=== PATIENT | male | born 1955 | race Caucasian/White ===

== ENCOUNTER 2016-12-16 08:51 | Inpatient (IN) | payer BC, OTHER ==
[~2016-12-16] VITALS: Ht 175.3 cm; Wt 106.6 kg
--- NOTE | ~2016-12-16 | S ---
[facility] [place] [address] SURGICAL PATH RPT PROCEDURE Name: KIRTI SCHERER Room #: 439-P DIS IN M.R.#: [id number] Admission: 12/16/16 Date of : 55 Discharge: 12/18/16 Report #: [id number] Path Case #: [id number] PATHOLOGY REPORT COLLECTION DATE: 12/16/2016 RECEIVED DATE: 12/17/2016 SUBMITTING PHYS: Dr. Patel Cardenas OTHER PHYS: Dr. Wojciech Raymond SPECIMEN(S) RECEIVED: A.Gallbladder * * * * * * * * * * * * FINAL DIAGNOSIS: Gallbladder, cholecystectomy: - Acute necrotizing cholecystitis. - Liver with reactive changes. (CLW:; d/t: 12/21/16) PATHOLOGIST: Shanita Oviedo M.D. REPORT ELECTRONICALLY SIGNED BY: Shanita Oviedo M.D. DATE/TIME: 12/21/2016 23:48 * * * * * * * * * * * * GROSS PATHOLOGY: Received in formalin labeled "Kirti Scherer gallbladder," is a 9.5 x 4.0 x 2.1 cm, previously opened gallbladder with a wrinkled, shiny, pale graydark green serosal surfaces. The gallbladder is opened to show a dark greenbrown, velvety, bile-stained mucosa and an average wall thickness of 0.3 cm. Calculi are not present and no masses are noted grossly. Reel System Operator sections from the body and fundus are submitted along with the proximal margin in cassette A1. (SNA; 12/18/2016) CLINICAL HISTORY: Cholecystitis INITIAL CPT CODE(S): A; 78274 Professional services performed by [facility] at [facility] [address], [place] [address] Technical services performed by [facility] at [address] [place] [address]. [facility] [address] [place] [address] SURGICAL PATH RPT PROCEDURE Name: KIRTI SCHERER Room #: 439-P [facility] IN ..#: [id number] Admission: 12/16/16 Date of : 55 Discharge: 12/18/16 Report #: [id number] Path Case #: [id number] kalpana wallace [facility] [address] [address] PHONE: [phone] DIRECTOR: Christopher Patton M.D. * * * END OF REPORT * * *
--- NOTE | ~2016-12-16 | O ---
[facility] [place] [address] OPERATIVE REPORT Name: KIRTI SCHERER Room #: 439-[facility] IN M.R.#: [id number] Admission: 12/16/16 Attend Phys: Wojciech Raymond Discharge: 12/18/16 Date of : 55 Report #: [id number] THIS REPORT FOR: //name// CC: MAGAN JAYY Raymond DATE OF SERVICE: 12/16/2016 PREOPERATIVE DIAGNOSES: 1. Cholecystitis. 2. Cholelithiasis. 3. Hyperbilirubinemia. POSTOPERATIVE DIAGNOSES: 1. Cholecystitis. 2. Cholelithiasis. 3. Hyperbilirubinemia. SURGEON: Patel Cardenas MD. VECTOR CONTROL ASSISTANT: Collin Ross MD. OPERATION PERFORMED: Laparoscopic cholecystectomy. ANESTHESIA: General endotracheal anesthesia and local anesthetic. ESTIMATED BLOOD LOSS: 250 mL. SPECIMENS TO PATHOLOGY: Gallbladder and contents. FINDINGS: Intraoperative cholangiogram showed no obvious filling defects, but showed a possible narrowing of the distal common bile duct, significant inflammatory response of the gallbladder which was thickened and indurated, this did appear chronic cholelithiasis also noted. INDICATION FOR PROCEDURE: The patient is a very pleasant 61-year-old gentleman who was admitted to [facility] on 12/16/2016 with abdominal pain that reportedly begun 2 days prior and he had been evaluated at [facility]. Apparently at that location, a CT scan of the abdomen was unremarkable and he was discharged home. He developed worsened chills, nausea and abdominal pain and therefore sought evaluation at [facility]. He also developed a sensation of feeling faint and he was evaluated for bradycardia. No obvious cardiac issue was identified. Ultrasound of the abdomen was obtained and this showed gallbladder wall significantly thickened at 6 mm with pericholecystic fluid and circumferential wall thickening. The liver also showed steatotic appearance. No obvious ductal dilatation. No obvious [facility] [address] [place] [address] OPERATIVE REPORT Name: KIRTI SCHERER Room #: 439-P [facility] IN M.R.#: [id number] Admission: 12/16/16 Attend Phys: Wojciech Raymond Discharge: 12/18/16 Date of : 55 Report #: [id number] choledocholithiasis was identified. Common bile duct was measured at 4.1. General Surgery was consulted for potential surgical intervention. Detailed discussion of the risks and benefits of cholecystectomy was held with the patient including bleeding, pain, infection, need for conversion to open cholecystectomy, damage to surrounding structures such as small bowel, duodenum, stomach, pylorus, liver, common bile duct, colon, significant perioperative hemorrhage and possible need for further intervention were all discussed. It was also discussed that potential unforeseen events may require further intervention for therapy, which may not have been specifically mentioned. All questions were answered to the patient's satisfaction and written informed consent was obtained. DESCRIPTION OF PROCEDURE: The patient was brought to the operating room and placed in a supine position. Timeout was taken to verify the patient's identity and to plan the procedure. SCDs were in place in the lower extremities bilaterally. Preoperative antibiotics were administered. Anesthesia was induced. The patient was intubated. Abdomen was sterilely prepped and draped in standard fashion. A 5 mm right upper quadrant incision was made after local anesthetic had been infiltrated. Direct optical access was utilized with a 5 mm 0 degree laparoscope. Pneumoperitoneum was created. Inspection of the viscera showed that no obvious injury had occurred. Periumbilical local anesthetic was infiltrated and 12 mm port was placed at the level of the umbilicus under direct vision. A 5 mm subxiphoid port was placed and a right lateral 5 mm port was placed in similar fashion. The patient was placed in the reverse Trendelenburg, right side up position. Orogastric tube was placed to decompress the stomach. The right upper quadrant structures were noted to be significantly inflamed and the duodenum and colon were adherent as well as omentum up to the gallbladder. This was meticulously dissected to reveal the gallbladder itself, which was indurated and full with signs of chronic inflammation. Careful dissection down to the infundibulum was then performed using [place] dissector and Sonicision energy device. Infundibulum was then isolated and critical view of safety was obtained once the cystic artery had been well identified. Cystic artery was clipped x 2 and transected to ligate this. The cystic duct was then isolated and milked back toward the gallbladder. The cystic duct was clipped near the gallbladder and incision was made in the cystic duct using laparoscopic scissor. Cholangiocatheter was then inserted into this opening and this was clipped in place. Cholangiogram was then performed and this showed good flow of contrast into the duodenum. There were no obvious filling defects, good flow back into the common hepatic duct and right and left hepatic ducts; however, at the distal common bile duct near the junction of the pancreatic duct, there was a narrowed appearance. Various angles were taken of this region to obtain good imagery. Again, no filling defects were identified. At this point, the cholangiogram was finished. The cholangiocatheter was removed. The cystic duct was clipped x 3 on the downside. Cystic duct was then transected using Sonicision energy device. The gallbladder was then resected from the fossa using Sonicision and electrocautery. The gallbladder fossa tended to ooze significantly with [facility] [address] [place] [address] OPERATIVE REPORT Name: KIRTI SCHERER Room #: 439-P [facility] IN ..#: [id number] Admission: 12/16/16 Attend Phys: Wojciech Raymond Discharge: 12/18/16 Date of : 55 Report #: [id number] difficult control of bleeding. A high setting electrocautery was utilized as well as placement of Surgicel and FloSeal within this region. The gallbladder was ultimately extracted successfully and placed into an EndoCatch bag. This was removed from the umbilical port site, which had to be enlarged slightly in order to accommodate the large size of the gallbladder. This was opened on the backtable and showed thickened eason as expected as well as chronic inflammation and cholelithiasis. Attention was returned to the infrahepatic space and this was irrigated with copious warm sterile saline and suctioned clear. Further electrocautery was utilized for hemostatic control and FloSeal and Surgicel were ultimately successful at maintaining hemostatic control. The 12 mm port site was then removed and using direct vision, the fascia was closed at this level using [id number] 0 PDS suture on a suture passer device. Reinspection of the gallbladder fossa showed that hemostasis was well maintained and at this point, pneumoperitoneum was removed. The 5 mm ports were discontinued. Further local anesthetic was infiltrated into each of the 4 port sites. 4-0 Monocryl subcuticular stitch was used to close the skin in each of the 4 sites. Dermabond was applied superficially at each of the 4 sites. At this point, the case was ended, all instrumentation had been extracted and accounted for. All counts were correct per nursing report. The patient was then awakened, extubated, and taken to the postoperative care unit in stable condition. By: [id number] Patel Cardenas MD /nt
--- NOTE | ~2016-12-16 | EKG ---
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 : 1955 Requested By: Ghada Stovall Order Number: [id number] MD: Jose Miguel Hudson Measurements Intervals [place] Rate: 81 P: 34 CA: 188 QRS: -46 QRSD: 92 T: -24 QT: 461 QTc: 536 Interpretive Statements Sinus rhythm Abnormal R-wave progression, late transition Left ventricular hypertrophy Inferior infarct, age indeterminate Prolonged QT interval No previous ECG available for comparison Electronically Signed On 12-17-2016 8:09:02 CDT by Jose Miguel Hudson [email or web address] <ELECTRONICALLY SIGNED> By: Jose Miguel Hudson MD, [facility] 06/02/25 809 6 Jose Miguel Hudson MD, [facility] /EPI
--- NOTE | ~2016-12-16 | HC ---
[facility] [place] [address] [place] [address] CONSULTATION Name: KIRTI SCHERER Room #: 439-P ADM IN M.R.#: [id number] Admission: 12/16/16 Attend Phys: Wojciech Raymond Discharge: Date of : 55 Report #: [id number] THIS REPORT FOR: //name// CC: MAGAN Raymond DATE OF SERVICE: 12/16/2016 CHIEF COMPLAINT: Abdominal pain. 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 He was evaluated at [facility]. CT scan was apparently checked at that location and this did not show anything remarkable. The patient was discharged home and overnight he developed chills and nausea. No shortness of breath or solitario emesis was reported. No melena or hematochezia. Today, the patient was noted to feel faint and therefore, he was brought in for evaluation. He was evaluated for bradycardia which was noted upon evaluation in the Emergency Department. He was noted at that time to have a normal sinus rhythm with a rate of 81. Nonspecific ST changes were noted. The patient was noted to have a white blood cell count of 6.7, hemoglobin 16.5 and platelets of 120, segmental neutrophils of 76. Sodium 140, potassium 4.2, chloride of 108, BUN of 18, creatinine of 1.1, lactate of 2.0, total bilirubin was elevated at 2.3, AST of 56, ALT of 52, alkaline phosphatase of 114 and lipase of 93. Ultrasound of the abdomen in the Emergency Department at [place] showed dependent sludge and/or small gallstones with findings suggestive of acute cholecystitis. The gallbladder wall was significantly thickened at 6 mm with pericholecystic fluid and circumferential wall thickening. Liver showed diffused increased echogenicity consistent with steatosis. No mass or ductal dilatation. Common bile duct was measured at 4.1. Abdominal plain films were unremarkable. ALLERGIES: The patient has no known drug allergies. REVIEW OF SYSTEMS: CONSTITUTIONAL: Negative for fevers or unwanted weight loss. Positive for subjective chills. OCULAR: No diplopia or visual change. HEENT: No dysphagia or odynophagia. PULMONARY: No productive cough, no shortness of breath. CARDIOVASCULAR: Positive for lightheadedness and bradycardia, negative for chest pain. GASTROINTESTINAL: Positive for upper abdominal pain. Positive for nausea, but no emesis, no diarrhea, constipation or melena. GENITOURINARY: Negative for dysuria or hematuria. MUSCULOSKELETAL: No back pain or joint swelling. [address] [address] CONSULTATION Name: KIRTI SCHEERR Room #: 439-P [facility] IN M.R.#: [id number] Admission: 12/16/16 Attend Phys: Wojciech Raymond Discharge: Date of : 55 Report #: [id number] CUTANEOUS: Negative for skin lesions or rashes. NEUROLOGIC: No focal weakness or headache. HOME MEDICATIONS: Include omeprazole, carvedilol, losartan and rosuvastatin. PHYSICAL EXAMINATION: VITAL SIGNS: The patient is afebrile and normotensive, pulse in the 80s-90s. GENERAL: He is awake, alert and oriented, in no acute distress, he gives appropriate history. HEENT: Head is atraumatic and normocephalic. Pupils are equally round and reactive. No icterus is appreciated. Cranial nerves are intact and symmetric. Oral cavity is clear. NECK: Supple, no jugular venous distention. LUNGS: Clear to auscultation. HEART: Regular, without murmur. ABDOMEN: Soft and mildly tender in the upper abdomen, especially in the epigastrium and right upper quadrant. He is nondistended, no abdominal surgical scars. No obvious hernia. EXTREMITIES: Without clubbing, cyanosis or edema. The patient moves all extremities. Distal pulses are intact. SKIN: Well-perfused. IMPRESSION: A 61-year-old male patient with clinical history and ultrasound findings consistent with acute cholecystitis. Biliary sludge and/or gallstones are suggested. He also has hyperbilirubinemia of unclear etiology. This may be associated with choledocholithiasis versus compression of the common bile duct extrinsically. RECOMMENDATIONS: 1. Agree with admission to the hospitalist medicine for observation. 2. Discussed case with gastroenterology colleagues and will plan for laparoscopic cholecystectomy with intraoperative cholangiogram today. Based upon these findings, we will decide whether the patient needs further workup such as MRCP, ERCP or specialized CT scan. Consultation very much appreciated. We will continue to follow closely and make further recommendations based upon clinical status. <ELECTRONICALLY SIGNED> By: Patel Cardenas MD 12/17/16 1006 [id number] Patel Cardenas MD /nt
[2016-12-16 08:52] VITALS: BP 157/97
[2016-12-16 09:49] LABS: ABSOLUTE NEUTROPHILS 5.1 thou/uL (1.4-8.2); BASOPHILS 0.8 % (0.0-2.0); EOSINOPHILS 1.4 % (0.0-3.0); HEMATOCRIT 48.1 % (42.0-52.0); HEMOGLOBIN 16.5 gm/dL (14.0-18.0); MCH 30.4 pg (26.0-34.0); MCHC 34.2 g/dL (28.0-37.0); MCV 88.6 fL (80.0-100.0); MONOCYTES 7.2 % (1.0-8.0); PLATELET COUNT 120 thou/uL (150-400); POLYS 76.6 % (36.0-66.0); RBC 5.42 mil/uL (4.50-6.00); RDW 13.2 % (10.5-14.5); WBC 6.7 thou/uL (4.0-11.0)
[2016-12-16] MEDS ORDERED: OMEPRAZOLE 20 M20 M1 PO (09:53)
[2016-12-16] MEDS ORDERED: LOSARTAN POTAS100 MG PO (09:54)
[2016-12-16] MEDS ORDERED: CARVEDILOL12.5 MG PO (09:54)
[2016-12-16] MEDS ORDERED: ROSUVASTATIN CA20 MG PO (09:54)
[2016-12-16 10:00] LABS: MANUAL DIFF NO
[2016-12-16 10:01] LABS: CALCIUM 8.9 mg/dL (8.5-10.1); CREATININE 1.1 mg/dL (0.7-1.3); POTASSIUM 4.2 mmol/L (3.5-5.1)
[2016-12-16 10:05] LABS: ALBUMIN 3.5 g/dL (3.4-5.0); TOTAL BILIRUBIN 2.3 mg/dL (<0.1-1.0)
[2016-12-16 13:42] VITALS: BP 125/77
[2016-12-16 18:00] VITALS: BP 174/107
[2016-12-16 18:30] VITALS: BP 184/103
[2016-12-16 19:00] VITALS: BP 182/106
[2016-12-16 23:58] VITALS: BP 167/90
[2016-12-17 03:49] VITALS: BP 154/77
[2016-12-17 06:08] LABS: HEMATOCRIT 43.3 % (42.0-52.0); HEMOGLOBIN 14.8 gm/dL (14.0-18.0); MCH 30.3 pg (26.0-34.0); MCHC 34.2 g/dL (28.0-37.0); MCV 88.6 fL (80.0-100.0); PLATELET COUNT 112 thou/uL (150-400); RBC 4.89 mil/uL (4.50-6.00); RDW 13.4 % (10.5-14.5); WBC 10.1 thou/uL (4.0-11.0)
[2016-12-17 06:13] LABS: MANUAL DIFF YES
[2016-12-17 06:42] LABS: ALBUMIN 2.9 g/dL (3.4-5.0); ALKALINE PHOSPHATASE 135 U/L (46-116); ANION GAP 9 mmol/L (7-16); BUN 21 mg/dL (7-18); CALCIUM 8.6 mg/dL (8.5-10.1); CHLORIDE 108 mmol/L (98-107); CO2 24 mmol/L (21-32); CREATININE 1.2 mg/dL (0.7-1.3); GLUCOSE 166 mg/dL (74-106); MAGNESIUM 2.1 mg/dL (1.8-2.4); SGOT 164 U/L (15-37); SGPT 180 U/L (30-65); SODIUM 141 mmol/L (136-145); TOTAL BILIRUBIN 1.1 mg/dL (<0.1-1.0); TOTAL PROTEIN 6.4 g/dL (6.4-8.2); TROPONIN-I < 0.04 ng/mL (<0.04-0.07)
[2016-12-17 07:47] LABS: ABSOLUTE NEUTROPHILS 8.6 thou/uL (1.4-8.2); TOTAL CELL COUNT 100
[2016-12-17 07:48] LABS: ANISOCYTOSIS SLIGHT
[2016-12-17 08:12] VITALS: BP 190/83
[2016-12-17 16:00] VITALS: BP 170/96
[2016-12-17 19:30] VITALS: BP 169/93
[2016-12-18 04:32] VITALS: BP 175/85
[2016-12-18 06:30] LABS: ALBUMIN 2.9 g/dL (3.4-5.0); DIRECT BILIRUBIN 0.2 mg/dL (<0.1-0.3); TOTAL BILIRUBIN 0.7 mg/dL (<0.1-1.0)
[2016-12-18 08:48] VITALS: BP 198/97
[2016-12-18] MEDS ORDERED: CARVEDILOL25 MG PO (10:01)
[2016-12-18] MEDS ORDERED: HYDROCODON-ACE1 EAC7 PO (10:02)
[2016-12-18] MEDS ORDERED: COZAAR100 MG PO (10:02)
[2016-12-18 12:24] VITALS: BP 163/93
[2016-12-18 12:27] VITALS: BP 163/93
== END 2016-12-18 13:30 | disposition home or self-care (01) | DRG 419 ==
LOC: ER 08:51 → 4S 12:31 → EROBS 12:31 → 4S 13:43
PROVIDERS: Emergency Medicine; Hospitalist; Internal Medicine Gastroenterology; Otolaryngology
PROC: 0FT44ZZ Resection of Gallbladder, Percutaneous Endoscopic Approach (ICD-10-PCS; principal; 2016-12-16)
PROC: BF131ZZ Fluoroscopy of Gallbladder and Bile Ducts using Low Osmolar Contrast (ICD-10-PCS; principal; 2016-12-16)
DX: K80.01 Calculus of gallbladder with acute cholecystitis with obstruction (principal); I10 Essential (primary) hypertension; E78.5 Hyperlipidemia, unspecified; K21.9 Gastro-esophageal reflux disease without esophagitis; K76.0 Fatty (change of) liver, not elsewhere classified; E80.6 Other disorders of bilirubin metabolism; E66.9 Obesity, unspecified; R79.89 Other specified abnormal findings of blood chemistry; R00.1 Bradycardia, unspecified; Z68.34 Body mass index [BMI] 34.0-34.9, adult; Z85.51 Personal history of malignant neoplasm of bladder; Z90.49 Acquired absence of other specified parts of digestive tract; Z79.899 Other long term (current) drug therapy; Z79.82 Long term (current) use of aspirin
CPT/HCPCS: 10100; 50010; 50101; 50249; 50411; 50555; 50886; 50900; 50944; 50962; 51489; 51751; 51975; 52265; 52266; 54022; 54118; 55245; 55317; 56462; 56525; 56526; 56639; 62110; 62900; 70005